=== PATIENT | male | born 1960 | race Caucasian/White ===

== ENCOUNTER 2018-03-12 08:56 | Observation (INO) | payer OTHER ==
[~2018-03-12] VITALS: Ht 172.7 cm; Wt 68.0 kg
[2018-03-12 09:09] VITALS: BP 127/80
[2018-03-12] MEDS ORDERED: ALBUTEROL2.5 MG/31 INH (09:33)
[2018-03-12] MEDS ORDERED: ALPRAZOLAM ER1 MG PO (09:34)
[2018-03-12] MEDS ORDERED: LISINOPRIL20 MG PO (09:34)
[2018-03-12] MEDS ORDERED: ZOLOFT50 MG PO (09:35)
[2018-03-12 09:42] LABS: HEMATOCRIT 51.9 % (42.0-52.0); MCH 28.6 pg (26.0-34.0); MCHC 32.7 g/dL (28.0-37.0); MCV 87.4 fL (80.0-100.0); MPV 8.1 fl. (7.2-11.1); RBC 5.94 mil/uL (4.50-6.00); RDW-CV 14.2 % (10.5-14.5); WBC 10.8 thou/uL (4.0-11.0)
[2018-03-12 09:48] LABS: APTT 28.5 Seconds (25.0-31.3); INR 1.1; PROTIME 10.8 Seconds (9.20-11.50)
[2018-03-12 09:49] LABS: ANION GAP 8 mmol/L (7-16); BUN 26 mg/dL (7-18); CHLORIDE 95 mmol/L (98-107); CO2 36 mmol/L (21-32); CREATININE 1.2 mg/dL (0.6-1.3); GLUCOSE 101 mg/dL (70-99); POTASSIUM 3.1 mmol/L (3.5-5.1); SODIUM 139 mmol/L (136-145)
[2018-03-12 09:54] LABS: ALBUMIN 3.6 g/dL (3.4-5.0); ALKALINE PHOSPHATASE 130 U/L (46-116); CHOLESTEROL 194 mg/dL (<200); HDL CHOLESTEROL 46 mg/dL (>40); LDL CHOLESTEROL 135 mg/dL (<100); SERUM ASSESSMENT Clear; SGOT 31 U/L (15-37); SGPT 34 U/L (30-65); TC:HDL 4.2 Ratio (Not establshd); TOTAL BILIRUBIN 0.4 mg/dL (<0.1-1.0); TOTAL PROTEIN 8.4 g/dL (6.4-8.2); TRIGLYCERIDE 67 mg/dL (<150); VLDL 13 mg/dL (<40)
--- NOTE | 2018-03-12 11:22 | EKG ---
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
[2018-03-12 12:06] VITALS: BP 136/93
--- NOTE | 2018-03-12 15:55 | NUR ---
1230-ASSUMED CARE OF PT. PT ON BEDREST PXN UNTIL 1848 THIS EVENING. PT HAS R GROIN SITE WITH ANGIOSEAL. SITE IS CDI AT THIS TIME WITH NO CONCERNS FOR BLEEDING. VS MACHINE SET TO DO VS PER CATH PROTOCOL. PT STATES NO C/O PAIN AT THIS TIME. PT ABLE TO TOLERATED DIET AND UNDERSTANDS NEED TO REMAIN FLAT. ADMISSION COMPLETE AND FORMS SIGNED FOR ADMISSION. WILL CONTINUE TO MONITOR AND ASSESS
[2018-03-12 16:42] VITALS: BP 136/93
--- NOTE | 2018-03-12 19:25 | NUR ---
PT VSS THIS SHIFT. PT OFF BEDREST PXN AT THIS TIME, WITH NO POST CATH COMPLICATIONS, SITE IS CDI AT THIS TIME. HOURLY ROUNDING MAINTAINED THIS SHIFT, PT TOLERATING DIET AND RA THIS SHIFT. PT SR ON THE MONITOR. PT VOIDED 600 PER URINAL THIS SHIFT
[2018-03-13] VITALS: BP 124/88
--- NOTE | 2018-03-13 03:55 | NUR ---
RECIEVED REPORT AND ASSUMED CARE AT 1900. VITAL SIGNS WERE STABLE. PT UP ADLIB AND STABLE. ASSESSMENT COMPLETED AND DISCUSSED PLAN OF CARE. PT DENIES ANY PAIN. CATH SIGHT BANDAGE IN TACK. NO PAIN OR BLEEDING FROM SIGHT AT THIS TIME. BED LOCKED, AND CALL LIGHT WITHIN REACH. HOURLY ROUNDING DONE AND ALL NEEDS MET. NURSING WILL CONTINUE TO MONITOR.
[2018-03-13 04:00] VITALS: BP 127/74
[2018-03-13 06:07] LABS: CALCIUM 8.7 mg/dL (8.5-10.1); POTASSIUM 3.6 mmol/L (3.5-5.1)
[2018-03-13 07:30] VITALS: BP 123/96
[2018-03-13 08:40] VITALS: BP 136/93
[2018-03-13] MEDS ORDERED: EFFIENT10 MG PO (09:21)
[2018-03-13] MEDS ORDERED: NITROGLYCERIN0.4 MG SUBLING (09:23)
[2018-03-13] MEDS ORDERED: ATORVASTATIN CA40 MG PO (09:24)
[2018-03-13 10:21] VITALS: BP 136/93
--- NOTE | 2018-03-13 10:40 | NUR ---
RECEIVED PT CARE 0700. HE IS ALERT AND ORIENTED X4. 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 HE DENIES PAIN. NO SOA. UP AD ES IN HIS ROOM. AM ASSESSMENT CHARTED. MEDS GIVEN PER JUN. PLANNING FOR DC TO HOME TODAY. WILL CONTINUE TO MONITOR.
--- NOTE | 2018-03-13 11:04 | NUR ---
RECEIVED DISCHARGE ORDERS PER DR KEITA. IV DISCONTINUED. EDUCATIONAL PSYCHOLOGIST REMOVED AND RETURNED TO NURSE'S DESK. EDUCATED THE PT ON F/U APPT WITH DR ZARAGOZA AND HIS PRIMARY. EDUCATED ON POST CATH DC INSTRUCTIONS AND WEIGHT LIFTING RESTRICTIONS. ALL HIS BELONGINGS ARE PACKED AND LEAVING WITH THE PATIENT. LEAVING VIA WHEELCHAIR ACCOMPANIED BY NURSING STAFF.
--- NOTE | 2018-03-15 12:54 | D ---
[address] [address] DISCHARGE SUMMARY Name: FLY BRUCE Room: [address] Adolfo Gibbons#: [id number] Admission: 03/12/18 Attend Phys: Bg Aaron MD Discharge: 03/13/18 Date of : 56 Report #: [id number] THIS REPORT FOR: //name// CC: Annalisa Aaron DATE OF SERVICE: 03/13/2018 FINAL DIAGNOSES: 1. Unstable angina. 2. Status post percutaneous coronary intervention. 3. Hyperlipidemia. HOSPITAL SUMMARY: The patient is a 57-year-old male who is admitted for outpatient cardiac catheterization after having clinical symptoms for heart disease and an abnormal stress test. He underwent successful PCI to his left anterior descending coronary artery. Please see procedure report. He tolerated the procedure well. His medications were altered in that he was started on prasugrel. ANTICIPATED DISCHARGE MEDICATIONS: Will be prasugrel 10 mg daily, baby aspirin, atorvastatin 40 mg daily. Other medications will remain unchanged. FOLLOWUP: He will follow up with our office in 1 month for a nurse practitioner visit. PROCEDURES PERFORMED: Cardiac catheterization performed by myself and percutaneous coronary intervention per Dr. Lion. <ELECTRONICALLY SIGNED> By: Antonio Mart MD, [facility] 03/15/18 1254 0927 1540Marco Charlene Aaron MD, FACC /nt
--- NOTE | 2018-03-18 16:40 | CARD ---
[address] [address] CARDIAC CATH REPORT Name: FLY BRUCE Room: [address] Adolfo Gibbons#: [id number] Admission: 03/12/18 Attend Phys: Bg Aaron MD Discharge: 03/13/18 Date of : 56 Report #: [id number] THIS REPORT FOR: //name// APPROVED REPORT Study performed: 03/12/2018 09:27:13 Patient Details Patient Status: Out-Patient Room #: The patient is a 57 year-old male Event Personnel Bg Aaron Shelver, Shalonda Tierney Monitor, Darnell Love (R) Scrub, Sussy Wood RTR Scrub, Lois Tirado RN Bath Mixer, Rashi Lion Air Carrier Maintenance Inspector Dr. Aaron Procedures Performed Art Access - R femoral artery* Left Heart Cath w/or w/o Coronaries [id number] [facility] [address] w/wo Plasty Single LAD [id number] w/wo Plasty Single DIAG 800151 Indication Positive stress test Risk Factors Hypercholesterolemia Admission/Lab Medications/Medications given during procedure Aspirin, Platelet Aff. Inhib., Angiomax bolus and infusion Procedure Narrative The patient was brought electively to the Cardiac Catheterization Laboratory and was prepped and draped in a sterile manner. The right femoral was infiltrated with 2% Lidocaine subcutaneous anesthesia. A 6fr Ultimum Sheath sheath was inserted into the right femoral artery. Coronary angiography was performed using coronary diagnostic catheters. The right coronary system was accessed and visualized with a 6fr JR 4 catheter. The left coronary system was accessed and visualized with a 6fr JL 4 catheter. The left ventricle was accessed and visualized with a 6fr pigtail catheter. Left ventricular/Aortic Valve gradient assessed via catheter pullback. Pre-demployment femoral angiogram was performed . Closure device was deployed with a 6 Fr Angioseal STS 6Fr. The patient tolerated the procedure well and there were no complications [place] [address] CARDIAC CATH REPORT Name: FLY BRUCE Room: [address]#: [id number] Admission: 03/12/18 Attend Phys: Bg Aaron MD Discharge: 03/13/18 Date of : 56 Report #: [id number] Intraoperative Conscious Sedation Sedation start time: 10:36 Case end Time: 11:50 Fentanyl 25 mcg Versed 2 mg Fluoro Time: 22.6 minutes Dose: DAP [id number] cGycm2 2119.55 mGy Contrast Type and Amount: Visipaque 470 ml Coronary Angiography The patient's coronary anatomy is right dominant. [place] Artery Percent Stenosis prior pneumonectomy, mediastinum is shifted left laterally Diagnostic Cath Left Main normal LAD mid body 80% ,focal stenosis. Mid 30-40%, possible distal bridge. Diagonal 1 small vessel, 80% stenosis Circumflex mild 30% non dom. OM1 normal Right Coronary large, dominant, mild 30% mid body,distal 50%, plb normal, pda mid body 50% Left Ventriculography The left ventricle is normal in size with normal contractility. The left ventricular ejection fraction is estimated to be >55%. Left ventricular wall motion abnormalities are not present. There is no mitral insufficiency. IVUS Findings NC Trek RX 2.5 X 12 Hemodynamics The aortic pressure is 121/80 mmHg with a mean of mmHg. The left ventricular pressure is 109/13 mmHg with a mean of mmHg. The left ventricular end diastolic pressure is 9 mmHg. There was no gradient across the aortic valve upon pullback. PCI Technique Lesion Anticoagulation was achieved with Angiomax Drip. Patient was preloaded with Angiomax IV 10.5 mg per kg. Percutaneous coronary intervention was performed on the mid [place] [address] CARDIAC CATH REPORT Name: FLY BRUCE Room: [address]#: [id number] Admission: 03/12/18 Attend Phys: Bg Aaron MD Discharge: 03/13/18 Date of : 56 Report #: [id number] segment. The lesion stenosis prior to intervention was 80% with NOÉ 3 flow. A 6FR XB 3.0 100CM Guide Catheter was used to engage the LCA ostium. A IG: ProwaterFlex 180CM Interventional Guidewire was used to cross the lesion. BALLOON DILATION A Balloon catheter Trek RX 2.25 X 12 was inserted and inflated up to 14.00atm for 9seconds. Additional Inflation: 16.00atm for 9seconds. STENT DEPLOYMENT A drug-eluting stent Xience Bebe 2.5X15mm was inserted and inflated up to 9.00atm for 7seconds. Additional Inflation: 12.00atm for 12seconds. Additional Inflation: 14.00atm for 10seconds. Final angiography reveals 10 % stenosis with NOÉ 3 flow. BALLOON DILATION A Balloon catheter NC Trek RX 2.5 X 12 was inserted and inflated up to 16.00atm for 10seconds. Additional Inflation: 18.00atm for 11seconds. Additional Inflation: 20.00atm for 8seconds. PCI Technique Lesion 2 Percutaneous Coronary Intervention was performed on the first diagnonal branch segment. Percutaneous coronary intervention was performed on the first diagonal branch. The lesion stenosis prior to intervention was 80% with NOÉ 3 flow. A 6FR XB 3.0 100CM Guide Catheter was used to engage the ostium. A IG: BMW 190cm Interventional Guidewire was used to cross the lesion. Balloon Dilation A Balloon catheter Mini Trek RX 1.5 X 8 was inserted and inflated up to 12.00atm for 7seconds. Additional Inflation: 18.00atm for 7seconds. Additional Inflation: 20.00atm for 7seconds. Final angiography reveals 50 % stenosis with NOÉ 3 flow. Conclusion 1. mid LAD 80% stenosis 2. small diameter diagonal with 80% stenosis 3. Normal LV function 4. Successful percutaneous coronary intervention with deployment of a drug-eluting stent at the site of 80% mid LAD stenosis with 10% residual narrowing and NOÉ-3 flow to the distal vessel 5. Successful percutaneous transluminal coronary angioplasty at the [address] [address] CARDIAC CATH REPORT Name: FLY BRUCE Room: [address] Adolfo Gibbons#: [id number] Admission: 03/12/18 Attend Phys: Bg Aaron MD Discharge: 03/13/18 Date of : 56 Report #: [id number] site of 80% ostial first diagonal narrowing with 50% residual following final dilatation and NOÉ-3 flow to the modest size distal diagonal Recommendations Aggressive Medical Therapy PCI to LAD Medications Administered Aspirin (any) Prasugrel Diagnostic Cath Approved by: Bg Aaron MD Date/Time: 03/18/2018 16:39:48 <ELECTRONICALLY SIGNED> By: Rashi Lion MD, FACC 03/18/18 1640 1640 1640Jobenito Lion MD, FACC /INF
== END 2018-03-13 11:03 | disposition home or self-care (01) ==
LOC: M.CL 08:56 → M.2W 13:05 → M.TBA-CV 13:05 → M.2W 13:19
PROVIDERS: ADMIT Internal Medicine Cardiovascular Disease
DX: I25.110 Atherosclerotic heart disease of native coronary artery with unstable angina pectoris (principal); E78.5 Hyperlipidemia, unspecified; Z95.5 Presence of coronary angioplasty implant and graft